=== PATIENT | female | born 1970 | race Caucasian/White ===

== ENCOUNTER → 2020-09-22 | Outpatient (CLI) | payer OTHER ==
--- NOTE | 2020-09-22 10:36 | RAD ---
XR FOOT_RIGHT 3 VIEWS History: Right foot pain for one month. No known injury. Comparison: None. Technique: 3 views of the right foot. Findings: Osseous mineralization is normal. No fracture or dislocation. The Lisfranc is normally aligned. No significant joint space narrowing or osteophyte formation. Small plantar calcaneal and Achilles insertion enthesophytes. No focal soft tissue swelling. Impression: 1. Achilles insertion and plantar calcaneal enthesophytes. Otherwise unremarkable right foot. Electronically signed by: Lucien Tripathi MD (09/22/2020 10:33 AM) [facility]
== END ==
LOC: RAD 09:04
PROVIDERS: ATTEND Family Medicine
DX: M77.31 Calcaneal spur, right foot (principal)
CPT/HCPCS: 73630